=== PATIENT | female | born 1945 | race Caucasian/White ===

== ENCOUNTER → 2016-03-26 | Outpatient (CLI) | payer OTHER, MEDICARE ==
[~2016-03-26] VITALS: Ht 167.6 cm; Wt 90.7 kg
[~2016-03-26] MED LIST: ACETAMINOPHEN325 M1 PO; ALEVE220 M1 PO; AMLODIPINE BESY10 MG PO; ASPIRIN81 M2 PO; AZOR 10-20 MG1 EACH PO; BENADRYL25 MG PO; CALCIUM; CARISOPRODOL 3350 MG PO; CELEBREX 200 M200 MG PO; CLARITIN10 M2 PO; ESTRACE1 MG PO; ESTRADIOL 1 MG T1 M1 PO; FENOFIBRATE PO; GABAPENTIN 100100 MG PO; GLUCOSAMINE &1 EAC1 PO; HYDROCHLOROTHIA25 M1 PO; HYDROCODONE-AP1 EAC6 PO; MELATONIN3 MG PO; MELATONIN5 M1 PO; MELOXICAM7.5 MG PO; METFORMIN HCL500 MG PO; MOBIC15 MG PO; MOBIC7.5 MG PO; MUCINEX TA600 MG/TA2 PO; MUCINEX600 MG PO; MULTIVITAMINS; PRILOSEC 20 MG20 MG PO; PRINIVIL20 MG PO; TRAMADOL 50 MG50 MG PO; TRICOR145 MG PO; VALIUM2 MG PO; VALIUM5 MG PO; [UNRECOGNIZED DRUG - OTHER] PO
--- NOTE | ~2016-03-26 | HPC ---
[facility] [place] [address] PAIN MANAGEMENT CONSULTATION Name: JACINDA PHILLIPS Room #: [facility] [id number] Admission: 03/26/16 Attend Phys: Sarthak Judge DO Discharge: Date of : 49 Report #: [id number] THIS REPORT FOR: //name// CC: Xavier Judge HISTORY OF PRESENT ILLNESS: The patient is a pleasant 70-year-old female well known to the pain clinic, typically treated for cervical radiculopathy, cervical spondylosis, myofascial pain, history of greater occipital neuralgia. Last visit 02/16/2016 I had proceeded with bilateral C-C2 cervical facet joint injections for facet mediated pain. She notes that this did affect good relief of neck and shoulder pain, though she still has some posterior occipital pain. She rates her pain as 3 or 4 on a 0-10 visual analog scale, dull, aching, shooting, sharp, stabbing pain, with headache and again primarily posterior occipital, but does radiate around to the temples. Upper extremity strength is generally symmetric. PHYSICAL EXAMINATION: GENERAL: Shows a 70-year-old female, BMI is 32.3 kilograms per meter squared. VITAL SIGNS: Stable as noted in the EMR. NEUROLOGIC: Cranial 2-12 are grossly intact. Pupils equal, reactive to light and accommodation. Extraocular muscles are intact. Cervical range of motion is full, but she does have tenderness over the nuchal ridge with pain radiating in the posterior occiput. Upper extremity strength is symmetric. Deep tendon reflexes are preserved, biceps, triceps, brachioradialis. DIAGNOSTIC STUDIES: Review of the patient's MRI from 2010, noting foraminal disk osteophyte at C3-C4 causing very severe right neural foraminal stenosis and facet arthropathy noted at multiple levels. ASSESSMENT: 1. Symptomatic cervical radiculopathy, cervical spondylosis, myofascial pain, symptoms relatively quiescent at present. RECOMMENDATIONS: We will start the patient on some hydrocodone 5/325. She has taken this empirically on a p.r.n. basis. We talked about concerns for opiate habituation and tolerance. With concerns for insomnia and muscle spasm, we have elected to trial Valium 2 mg at bedtime for about 30 days. 2. Myofascial pain and greater occipital neuralgia. RECOMMENDATION: Trigger point injections over the nuchal ridge encompassing the greater occipital nerve. PROCEDURE NOTE: After written informed consent was obtained, the patient was placed in prone position. A skin wheal with Xylocaine was raised. A 25-gauge needle was used to inject 20 mg triamcinolone plus 4 mL of 50:50 mix of 0.5% [address] [address] PAIN MANAGEMENT CONSULTATION Name: JACINDA PHILLIPS COMPA Room #: REG LARISSA Lehman#: [id number] Admission: 03/26/16 Attend Phys: Sarthak Judge DO Discharge: Date of : 49 Report #: [id number] preservative-free bupivacaine plus 1.5% preservative-free Xylocaine with 1:100,000 epinephrine in a lateral distribution to the right along the inferior border of the right nuchal ridge covering the right greater and lesser occipital nerve. Needle was removed. Attention was then directed in the contralateral fashion from the midpoint directing left along the inferior border of the nuchal ridge, trigger point in this muscle group encompassing the greater and lesser occipital nerves. The patient was discharged in good and stable condition. Told to use ice to the area. Follow up as needed for medication management. <ELECTRONICALLY SIGNED> By: Sarthak Judge DO 03/29/16 1228 [id number] Sarthak Judge DO /nt
[2016-03-26 08:46] VITALS: BP 133/72
== END | disposition home or self-care (01) ==
LOC: PAIN 06:50
DX: M79.1 Myalgia (principal); M54.12 Radiculopathy, cervical region; M47.892 Other spondylosis, cervical region

== ENCOUNTER → 2018-01-04 | Outpatient (CLI) | payer OTHER, MEDICARE | LOC: RAD 09:50 | DX: Z12.31 Encounter for screening mammogram for malignant neoplasm of breast (principal) ==

== ENCOUNTER → 2019-02-14 | Outpatient (CLI) | payer OTHER, MEDICARE | LOC: RAD 09:13 | DX: Z12.31 Encounter for screening mammogram for malignant neoplasm of breast (principal) ==

== ENCOUNTER → 2020-08-06 | Outpatient (CLI) | payer OTHER, MEDICARE | LOC: RAD 14:47 | PROVIDERS: ATTEND Family Medicine | DX: Z12.31 Encounter for screening mammogram for malignant neoplasm of breast (principal) ==